=== PATIENT | female | born 1980 | race Caucasian/White ===

== ENCOUNTER 2020-07-17 14:26 | Inpatient (IN) | payer MEDICAID, OTHER ==
[~2020-07-17] VITALS: Ht 162.6 cm; Wt 84.0 kg
[2020-07-17] MEDS ORDERED: ONDANSETRON HCL 4 MG/2 ML VIAL IV ONE (14:45)
[2020-07-17] MEDS ORDERED: SODIUM CHLORIDE 0.9% 1,000 ML IVB ONE (14:45)
[2020-07-17 15:27] LABS: Albumin 3.9 g/dL (3.4-5.0); Basophils # (auto) 0.1 10 ^3/uL (0-0.2); Calcium 8.9 mg/dL (8.5-10.1); Eosinophils # (auto) 0.3 10 ^3/uL (0-0.8); Eosinophils % (auto) 3.6 % (0.0-7.0); Hemoglobin 13.1 g/dL (12.2-16.2); Lymphocytes # (auto) 2.8 10 ^3/uL (0.4-5.4); Lymphocytes % (auto) 30.8 % (10.0-50.0); Magnesium 2.1 mg/dL (1.6-2.6); Mean Corpuscular Hemoglobin 29.8 pg (28.0-32.0); Mean Corpuscular Hgb Conc. 33.6 g/dL (32.0-36.0); Mean Corpuscular Volume 88.8 fL (80.0-100.0); Monocytes # (auto) 0.7 10 ^3/uL (0-1.3); Monocytes % (auto) 7.5 % (0.0-12.0); Neutrophils # (auto) 5.2 10 ^3/uL (1.6-8.6); Neutrophils % (auto) 57.1 % (37.0-80.0); White Blood Cell 9.1 10^3/uL (4.4-10.8)
[2020-07-17 15:32] LABS: Bilirubin, Total 0.4 mg/dL (0.2-1.0); Total Protein 8.1 g/dL (6.4-8.2)
[2020-07-17 15:42] LABS: Potassium 4.3 mmol/L (3.5-5.1)
[2020-07-17 15:51] LABS: BUN/Creatinine Ratio 16.2
[2020-07-17 15:59] LABS: INR 0.97 (0.9-1.15); Partial Thromboplastin Time 26.3 sec (23.0-31.2)
[2020-07-17 16:14] LABS: Urine Bacteria FEW /hpf (None Seen); Urine Blood 3+ /uL (Negative); Urine Mucus FEW (None Seen); Urine Specific Gravity 1.015 (1.001-1.035); Urine WBC 84 /hpf (0 - 5)
[2020-07-17] MEDS ORDERED: cefTRIAXone 1GM/50ML D5W 50 ML IV ONE (19:00)
[2020-07-17] MEDS: SODIUM CHLORIDE 0.9% 1,000 ML IV SCH (21:15)
[2020-07-17] MEDS ORDERED: TEMAZEPAM 15 MG CAP PO PRN (21:15)
[2020-07-17] MEDS ORDERED: ONDANSETRON HCL 4 MG/2 ML VIAL IV PRN (21:15)
[2020-07-17] MEDS: FAMOTIDINE 20 MG TAB PO SCH (22:00)
[2020-07-17] MEDS: HYDROcodone-ACET 5/325MG TAB PO PRN (22:47)
[2020-07-18] MEDS: ACETAMINOPHEN 325 MG TAB PO PRN ×2 (01:52→09:11)
[2020-07-18 05:00] VITALS: BP 108/66
[2020-07-18 05:24] LABS: Basophils # (auto) 0 10 ^3/uL (0-0.2); Basophils % (auto) 0.5 % (0.0-2.0); Eosinophils # (auto) 0.2 10 ^3/uL (0-0.8); Eosinophils % (auto) 2.3 % (0.0-7.0); Hematocrit 35.7 % (36.0-46.0); Lymphocytes # (auto) 2.7 10 ^3/uL (0.4-5.4); Lymphocytes % (auto) 30.6 % (10.0-50.0); Mean Corpuscular Hemoglobin 29.7 pg (28.0-32.0); Mean Corpuscular Hgb Conc. 33.7 g/dL (32.0-36.0); Monocytes # (auto) 0.7 10 ^3/uL (0-1.3); Monocytes % (auto) 7.5 % (0.0-12.0); Neutrophils # (auto) 5.2 10 ^3/uL (1.6-8.6); Neutrophils % (auto) 59.1 % (37.0-80.0); Red Blood Cells 4.05 10^6/uL (4.0-5.20); Red Cell Distribution Width 13.8 % (11.8-14.3); White Blood Cell 8.7 10^3/uL (4.4-10.8)
[2020-07-18 05:40] LABS: Calcium 8.1 mg/dL (8.5-10.1); Potassium 3.8 mmol/L (3.5-5.1)
[2020-07-18 05:43] LABS: Albumin 3.4 g/dL (3.4-5.0); BUN/Creatinine Ratio 16.9
[2020-07-18 05:46] LABS: Bilirubin, Total 0.6 mg/dL (0.2-1.0); Total Protein 6.6 g/dL (6.4-8.2)
[2020-07-18] MEDS: HYDROcodone-ACET 5/325MG TAB PO PRN (06:36)
[2020-07-18 08:38] VITALS: BP 145/73
[2020-07-18] MEDS: cefTRIAXone 1GM/50ML D5W 50 ML IV SCH (09:10)
[2020-07-18] MEDS: FAMOTIDINE 20 MG TAB PO SCH ×2 (09:10→21:18)
[2020-07-18] MEDS ORDERED: KETOROLAC TROMETH 30 MG/ML 1ML VIAL IV PRN (12:15)
[2020-07-18 13:00] VITALS: BP 135/69
[2020-07-18] MEDS: SODIUM CHLORIDE 0.9% 1,000 ML IV SCH (13:39)
[2020-07-18 16:43] VITALS: BP 107/70
[2020-07-18 22:00] VITALS: BP 113/69
[2020-07-19] MEDS: SODIUM CHLORIDE 0.9% 1,000 ML IV SCH ×2 (00:57→15:30)
[2020-07-19 05:15] VITALS: BP 111/77
[2020-07-19 06:59] LABS: Basophils # (auto) 0.1 10 ^3/uL (0-0.2); Basophils % (auto) 0.8 % (0.0-2.0); Eosinophils # (auto) 0.2 10 ^3/uL (0-0.8); Eosinophils % (auto) 3.4 % (0.0-7.0); Hematocrit 34.1 % (36.0-46.0); Hemoglobin 11.6 g/dL (12.2-16.2); Lymphocytes # (auto) 1.9 10 ^3/uL (0.4-5.4); Lymphocytes % (auto) 29.6 % (10.0-50.0); Mean Corpuscular Hemoglobin 29.9 pg (28.0-32.0); Mean Corpuscular Volume 87.8 fL (80.0-100.0); Monocytes # (auto) 0.5 10 ^3/uL (0-1.3); Monocytes % (auto) 7.8 % (0.0-12.0); Neutrophils # (auto) 3.8 10 ^3/uL (1.6-8.6); Neutrophils % (auto) 58.4 % (37.0-80.0); Nucleated Red Blood Cells % 0.1 %; Red Blood Cells 3.88 10^6/uL (4.0-5.20); Red Cell Distribution Width 13.4 % (11.8-14.3); White Blood Cell 6.5 10^3/uL (4.4-10.8)
[2020-07-19 08:18] VITALS: BP 127/67
[2020-07-19] MEDS: FAMOTIDINE 20 MG TAB PO SCH ×2 (10:00→21:54)
[2020-07-19] MEDS: cefTRIAXone 1GM/50ML D5W 50 ML IV SCH (10:14)
[2020-07-19 11:24] LABS: INR 1.03 (0.9-1.15); Partial Thromboplastin Time 25.7 sec (23.0-31.2)
[2020-07-19] MEDS ORDERED: ONDANSETRON HCL 4 MG/2 ML VIAL ONE (11:29)
[2020-07-19] MEDS ORDERED: SODIUM CHLORIDE LOCK 10 ML ONE (11:29)
[2020-07-19] MEDS ORDERED: NEOSTIGMINE 1 MG/ML INJ (10mg/10ML VIAL) ONE (11:29)
[2020-07-19] MEDS ORDERED: fentaNYL CITRATE 100 MCG/2 ML VL ONE (11:29)
[2020-07-19] MEDS ORDERED: PROPOFOL 10 MG/ML 20 ML IV ONE (11:29)
[2020-07-19] MEDS ORDERED: GLYCOPYRROLATE 0.2 MG/ML 1ML VIAL ONE (11:29)
[2020-07-19] MEDS ORDERED: ROCURONIUM 10MG/ML 10ML VIAL IV ONE (11:29)
[2020-07-19] MEDS ORDERED: MEPERIDINE HCL (50 MG/ML) 1 ML VIAL ONE (11:29)
[2020-07-19] MEDS ORDERED: MIDAZOLAM HCL 2MG/2ML 2ml VIAL (1mg/ml) ONE (11:29)
[2020-07-19] MEDS ORDERED: MORPHINE SULFATE 4 MG/ML SYR/VIAL IV PRN (12:15)
[2020-07-19] MEDS ORDERED: METOCLOPRAMIDE HCL 5MG/ml INJ 2ml VIAL IV PRN (12:15)
[2020-07-19] MEDS ORDERED: HYDROmorphone HCL 2 MG/ML VL IV PRN (12:15)
[2020-07-19] MEDS ORDERED: SUCCINYLCHOLINE CHLORIDE 20 MG/ML 10ML VIAL IV ONE (12:41)
[2020-07-19] MEDS ORDERED: KETOROLAC TROMETH 30 MG/ML 1ML VIAL IV PRN (14:45)
[2020-07-19] MEDS ORDERED: ACETAMINOPHEN IV 100 ML IV ONE (14:45)
[2020-07-19] MEDS ORDERED: LACTATED RINGER'S 1,000 ML IV SCH (14:45)
[2020-07-19] MEDS ORDERED: HYDROmorphone HCL 2 MG/ML VL IV ONE (14:52)
[2020-07-19 16:24] VITALS: BP 118/78
[2020-07-19] MEDS: ONDANSETRON HCL 4 MG/2 ML VIAL IV PRN ×2 (17:25→21:55)
[2020-07-19 19:51] VITALS: BP 130/72
[2020-07-19] MEDS: HYDROmorphone HCL 2 MG/ML VL IV PRN (21:56)
[2020-07-19 22:00] VITALS: BP 112/72
[2020-07-20] MEDS: SODIUM CHLORIDE 0.9% 1,000 ML IV SCH (02:35)
[2020-07-20 05:00] VITALS: BP 117/75
[2020-07-20] MEDS: ONDANSETRON HCL 4 MG/2 ML VIAL IV PRN ×2 (05:30→11:33)
[2020-07-20] MEDS: HYDROmorphone HCL 2 MG/ML VL IV PRN ×2 (05:30→11:36)
[2020-07-20 06:54] LABS: Basophils # (auto) 0 10 ^3/uL (0-0.2); Basophils % (auto) 0.4 % (0.0-2.0); Eosinophils # (auto) 0 10 ^3/uL (0-0.8); Eosinophils % (auto) 0.1 % (0.0-7.0); Hematocrit 36.7 % (36.0-46.0); Hemoglobin 12.2 g/dL (12.2-16.2); Lymphocytes # (auto) 1.9 10 ^3/uL (0.4-5.4); Lymphocytes % (auto) 15.4 % (10.0-50.0); Mean Corpuscular Hemoglobin 29.2 pg (28.0-32.0); Mean Corpuscular Hgb Conc. 33.2 g/dL (32.0-36.0); Mean Corpuscular Volume 88.1 fL (80.0-100.0); Monocytes # (auto) 0.9 10 ^3/uL (0-1.3); Monocytes % (auto) 7.5 % (0.0-12.0); Neutrophils # (auto) 9.4 10 ^3/uL (1.6-8.6); Neutrophils % (auto) 76.6 % (37.0-80.0); Nucleated Red Blood Cells % 0.1 %; Red Blood Cells 4.17 10^6/uL (4.0-5.20); Red Cell Distribution Width 13.4 % (11.8-14.3); White Blood Cell 12.2 10^3/uL (4.4-10.8)
[2020-07-20 09:04] VITALS: BP 128/77
[2020-07-20] MEDS: FAMOTIDINE 20 MG TAB PO SCH ×2 (09:54→21:37)
[2020-07-20] MEDS: cefTRIAXone 1GM/50ML D5W 50 ML IV SCH (10:01)
[2020-07-20] MEDS ORDERED: HYDROcodone-ACET 5/325MG TAB PO PRN ×2 (12:00)
[2020-07-20] MEDS ORDERED: SIMETHICONE 80 MG CHEWABLE TABLET PO PRN (12:00)
[2020-07-20 13:00] VITALS: BP 113/75
[2020-07-20] MEDS ORDERED: THROAT LOZENGES(CEPASTAT) MT PRN (14:45)
[2020-07-20 16:46] VITALS: BP 116/73
[2020-07-20] MEDS: IBUPROFEN 800 MG TAB PO PRN (17:02)
[2020-07-20] MEDS: DOCUSATE SOD 100 MG CAP PO SCH (21:37)
[2020-07-20 22:00] VITALS: BP 118/73
[2020-07-21] MEDS: ONDANSETRON HCL 4 MG/2 ML VIAL IV PRN (03:47)
[2020-07-21] MEDS: IBUPROFEN 800 MG TAB PO PRN ×2 (03:48→12:35)
[2020-07-21 05:23] VITALS: BP 110/72
[2020-07-21 09:00] VITALS: BP 103/60
[2020-07-21] MEDS: cefTRIAXone 1GM/50ML D5W 50 ML IV SCH (09:22)
[2020-07-21] MEDS: DOCUSATE SOD 100 MG CAP PO SCH (09:22)
[2020-07-21] MEDS: FAMOTIDINE 20 MG TAB PO SCH (09:23)
[2020-07-21 12:38] VITALS: BP 110/72
[2020-07-21 12:39] VITALS: BP 110/69
== END 2020-07-21 14:20 | disposition home or self-care (01) | DRG 545 ==
LOC: ER 14:26 → OVERFLOW 21:12 → CENTRAL 22:20
PROVIDERS: ADMIT Nurse Practitioner; ATTEND Specialist
PROC: 0UB64ZZ Excision of Left Fallopian Tube, Percutaneous Endoscopic Approach (ICD-10-PCS; principal; 2020-07-19 12:51)
PROC: 10T24ZZ Resection of Products of Conception, Ectopic, Percutaneous Endoscopic Approach (ICD-10-PCS; 2020-07-19 12:51)
DX: O00.102 Left tubal pregnancy without intrauterine pregnancy (principal); K66.1 Hemoperitoneum; R71.0 Precipitous drop in hematocrit; O08.83 Urinary tract infection following an ectopic and molar pregnancy; O08.89 Other complications following an ectopic and molar pregnancy; K66.0 Peritoneal adhesions (postprocedural) (postinfection); I10 Essential (primary) hypertension; G43.909 Migraine, unspecified, not intractable, without status migrainosus; E66.9 Obesity, unspecified; K42.9 Umbilical hernia without obstruction or gangrene; F17.210 Nicotine dependence, cigarettes, uncomplicated; Z20.822 Contact with and (suspected) exposure to COVID-19; Z82.49 Family history of ischemic heart disease and other diseases of the circulatory system; Z64.1 Problems related to multiparity; Z90.49 Acquired absence of other specified parts of digestive tract; Z68.34 Body mass index [BMI] 34.0-34.9, adult
CPT/HCPCS: 36415; 74176; 76801; 76817; 80053; 81001; 83735; 84702; 85025; 85610; 85730; 86850; 86900; 86901; 87081; 87426; 96361; 96365; 96375; 99291; G0378; J0131; J0330; J0696; J2250; J2405; J2704